=== PATIENT | female | born 1995 | race Hispanic/Latino ===

== ENCOUNTER 2025-01-17 11:48 | Inpatient (IN) | payer OTHER ==
[2025-01-16] MEDS: Magnesium Sulfate 20 gm/500 ml 20 GM/500 ML BAG IVPB SCH (22:30)
[2025-01-17 18:31] VITALS: BMI 47.2
[2025-01-17] MEDS ORDERED: Ibuprofen 800 MG TAB PO PRN (20:24)
[2025-01-17] MEDS ORDERED: Lidocaine 1% (PF) 30 ML VIAL SC PRN (20:24)
[2025-01-17] MEDS ORDERED: Methylergonovine 0.2 MG/ML VIAL IM PRN (20:24)
[2025-01-17] MEDS ORDERED: Carboprost 250 MCG/ML AMP IM PRN (20:24)
[2025-01-17] MEDS ORDERED: Ondansetron PF 4 MG/2 ML Vial IVP PRN (20:24)
[2025-01-17] MEDS ORDERED: hydrALAZINE 20 MG/ML VIAL SLOW IVP PRN (20:24)
[2025-01-17] MEDS ORDERED: Tranexamic Acid 1,000 MG/10 ML VIAL IVP PRN (20:24)
[2025-01-17] MEDS ORDERED: Acetaminophen 500 MG TAB PO PRN (20:24)
[2025-01-17] MEDS ORDERED: Diphenoxylate HCl/Atropine Tablet PO PRN ×2 (20:24)
[2025-01-17] MEDS ORDERED: Penicillin G Potassium 5 MILL.UNITS in Sodium Chloride 0.9% 100 ML IVPB SCH (20:30)
[2025-01-17] MEDS ORDERED: Oxytocin 30 units/NS 500 ML 500 ML IV SCH ×2 (20:30)
[2025-01-17 20:45] LABS: Hematocrit 38.5 % (34.9-44.5); Hemoglobin 12.3 g/dL (12.0-15.5); Mean Corpuscular Hemoglobin 27.1 pg (27.0-33.0); Mean Corpuscular Volume 84.8 fL (81.6-98.3); Platelet Count 252 10x3/uL (150-450); Red Blood Cell (RBC) Count 4.54 10x6/uL (3.90-5.03); White Blood Cell (WBC) Count 12.27 10x3/uL (3.5-10.5)
[2025-01-17 21:17] LABS: Syphilis Antibody Index 0.08 S/CO (<1.00 Non-Reactive)
[2025-01-17 21:19] LABS: Hep B Surf Ag - L&D Non-Reactive S/CO (NonReactive)
[2025-01-17] MEDS ORDERED: Calcium Gluc 4.6 MEQ/10 ML (100 MG/ML) SLOW IVP PRN (21:47)
[2025-01-17 21:51] LABS: ALT (SGPT) 22 U/L (Less than 34); AST (SGOT) 16 U/L (11-34); Albumin 3.4 g/dL (3.1-4.5); Alkaline Phosphatase 169 U/L (40-110); Anion Gap 14 mmol/L (10-20); BUN (Urea Nitrogen) 10 mg/dL (7.0-18.7); Bilirubin, Total 0.2 mg/dL (0.3-1.2); Calc. Creatinine Clearance 264 mL/min (70-130); Calcium 9.1 mg/dL (7.8-10.44); Carbon Dioxide 21 mmol/L (22-29); Chloride 106 mmol/L (98-107); Globulin 3.1 g/dL (2.4-3.5); Glucose 131 mg/dL (70-105); Potassium 4.2 mmol/L (3.5-5.1); Sodium 137 mmol/L (136-145)
[2025-01-17 21:52] LABS: Protein, Urine Random Quant 34.0 mg/dL (1-14)
[2025-01-18] MEDS: Penicillin G 2.5 MILL.units 2.5 MILL.UNITS in Premix 1 BAG IVPB SCH (00:30)
[2025-01-18] MEDS ORDERED: NIFEdipine 10 MG CAP PO PRN ×2 (00:40)
[2025-01-18] MEDS ORDERED: hydrALAZINE 20 MG/ML VIAL SLOW IVP PRN ×3 (00:40)
[2025-01-18 08:17] LABS: Hematocrit 39.3 % (34.9-44.5); Hemoglobin 12.8 g/dL (12.0-15.5); Mean Corpuscular Hemoglobin 27.1 pg (27.0-33.0); Mean Corpuscular Volume 83.3 fL (81.6-98.3); Platelet Count 266 10x3/uL (150-450); Red Blood Cell (RBC) Count 4.72 10x6/uL (3.90-5.03); White Blood Cell (WBC) Count 14.64 10x3/uL (3.5-10.5)
[2025-01-18 08:36] LABS: ALT (SGPT) 22 U/L (Less than 34); AST (SGOT) 19 U/L (11-34); Albumin 3.4 g/dL (3.1-4.5); Alkaline Phosphatase 162 U/L (40-110); Anion Gap 14 mmol/L (10-20); BUN (Urea Nitrogen) 7 mg/dL (7.0-18.7); Bilirubin, Total 0.3 mg/dL (0.3-1.2); Calc. Creatinine Clearance 287 mL/min (70-130); Calcium 8.2 mg/dL (7.8-10.44); Carbon Dioxide 20 mmol/L (22-29); Chloride 106 mmol/L (98-107); Globulin 3.5 g/dL (2.4-3.5); Glucose 99 mg/dL (70-105); Magnesium 4.3 mg/dL (1.6-2.6); Potassium 3.8 mmol/L (3.5-5.1); Sodium 136 mmol/L (136-145)
[2025-01-18] MEDS: hydrALAZINE 20 MG/ML VIAL SLOW IVP PRN (08:49)
[2025-01-18] MEDS: Dinoprostone 10 MG Suppository VAG SCH (13:18)
[2025-01-19] MEDS: Oxytocin 30 units/NS 500 ML 500 ML IV SCH (00:36)
[2025-01-19 06:29] LABS: Hematocrit 39.4 % (34.9-44.5); Hemoglobin 12.8 g/dL (12.0-15.5); Mean Corpuscular Hemoglobin 26.7 pg (27.0-33.0); Mean Corpuscular Volume 82.3 fL (81.6-98.3); Platelet Count 260 10x3/uL (150-450); Red Blood Cell (RBC) Count 4.79 10x6/uL (3.90-5.03); White Blood Cell (WBC) Count 13.78 10x3/uL (3.5-10.5)
[2025-01-19 06:51] LABS: ALT (SGPT) 23 U/L (Less than 34); AST (SGOT) 21 U/L (11-34); Albumin 3.4 g/dL (3.1-4.5); Alkaline Phosphatase 176 U/L (40-110); Anion Gap 17 mmol/L (10-20); BUN (Urea Nitrogen) 5 mg/dL (7.0-18.7); Bilirubin, Total 0.6 mg/dL (0.3-1.2); Calc. Creatinine Clearance 277 mL/min (70-130); Calcium 8.1 mg/dL (7.8-10.44); Carbon Dioxide 16 mmol/L (22-29); Chloride 106 mmol/L (98-107); Globulin 3.7 g/dL (2.4-3.5); Glucose 108 mg/dL (70-105); Magnesium 5.3 mg/dL (1.6-2.6); Potassium 3.9 mmol/L (3.5-5.1); Sodium 135 mmol/L (136-145)
[2025-01-19] MEDS: hydrALAZINE 20 MG/ML VIAL SLOW IVP PRN (08:41)
[2025-01-19] MEDS: fentaNYL/Ropivacaine Epidural 100 ML ONE (21:37)
[2025-01-19] MEDS ORDERED: diphenhydrAMINE 50 MG/ML VIAL IVP PRN (21:48)
[2025-01-19] MEDS ORDERED: Acetaminophen 325 MG TAB PO PRN (21:48)
[2025-01-19] MEDS ORDERED: Communication Order-Pharmacy FS SCH (22:00)
[2025-01-20] MEDS: Penicillin G Potassium 5 MILL.UNITS VIAL ONE (00:42)
[2025-01-20] MEDS: fentaNYL 2 mcg/Ropivacaine 0.2% Epidural 100 ML CADD EPIDURAL SCH (05:11)
[2025-01-20 06:10] LABS: Magnesium 5.4 mg/dL (1.6-2.6)
[2025-01-20 07:35] LABS: #Basophils 0.03 10x3/uL (0.0-0.2); #Eosinophils Less than 0.03 10x3/uL (0.0-0.5); #Monocytes 1.14 10x3/uL (0.0-1.1); #Neutrophils 18.87 10x3/uL (1.5-8.4); %Basophils 0.1 % (0.0-2.0); %Eosinophils 0.0 % (0.0-6.0); %Lymphocytes 3.8 % (18.0-47.0); %Monocytes 5.4 % (0.0-10.0); %Neutrophils 90.1 % (40.0-75.0); Hematocrit 37.7 % (34.9-44.5); Hemoglobin 12.3 g/dL (12.0-15.5); Mean Corpuscular Hemoglobin 27.2 pg (27.0-33.0); Mean Corpuscular Volume 83.4 fL (81.6-98.3); Platelet Count 251 10x3/uL (150-450); Red Blood Cell (RBC) Count 4.52 10x6/uL (3.90-5.03); White Blood Cell (WBC) Count 20.97 10x3/uL (3.5-10.5)
[2025-01-20 07:54] LABS: ALT (SGPT) 24 U/L (Less than 34); AST (SGOT) 24 U/L (11-34); Albumin 3.0 g/dL (3.1-4.5); Alkaline Phosphatase 167 U/L (40-110); Anion Gap 15 mmol/L (10-20); BUN (Urea Nitrogen) 6 mg/dL (7.0-18.7); Bilirubin, Total 0.8 mg/dL (0.3-1.2); Calc. Creatinine Clearance 240 mL/min (70-130); Calcium 8.0 mg/dL (7.8-10.44); Carbon Dioxide 18 mmol/L (22-29); Chloride 105 mmol/L (98-107); Globulin 3.5 g/dL (2.4-3.5); Glucose 118 mg/dL (70-105); Potassium 4.0 mmol/L (3.5-5.1); Sodium 134 mmol/L (136-145)
[2025-01-20] MEDS ORDERED: Bicitra 30 ML UDCUP PO PRN (10:27)
[2025-01-20] MEDS ORDERED: HYDROmorphone 0.5 MG/0.5 ML SYRINGE SLOW IVP PRN (10:28)
[2025-01-20] MEDS ORDERED: diphenhydrAMINE 50 MG/ML VIAL IVP PRN (10:28)
[2025-01-20] MEDS ORDERED: Meperidine HCl/PF 25 MG (1 mL) VIAL SLOW IVP PRN (10:28)
[2025-01-20] MEDS ORDERED: Ondansetron PF 4 MG/2 ML Vial IVP PRN ×3 (10:28→11:56)
[2025-01-20] MEDS ORDERED: Communication Order-Pharmacy FS SCH (10:30)
[2025-01-20] MEDS ORDERED: Ketorolac Tromethamine 30 MG (1 mL) VIAL IVP SCH (10:30)
[2025-01-20] MEDS ORDERED: Azithromycin 500 MG in Sodium Chloride 0.9% 250 ML 250 ML IVPB SCH (10:30)
[2025-01-20] MEDS: Famotidine/PF 20 mg/2ml Vial SLOW IVP PRN (10:36)
[2025-01-20] MEDS: Ondansetron PF 4 MG/2 ML Vial IVP PRN (10:37)
[2025-01-20 11:41] LABS: Analyzer IN Cardio CS NICU; Critical Notified By: Udy, RRT; Critical Notified Whom: Emma, L&D RN; pH (Cord, venous) 7.330 (7.250-7.350)
[2025-01-20] MEDS ORDERED: Methylergonovine 0.2 MG TAB PO PRN (11:56)
[2025-01-20] MEDS ORDERED: diphenhydrAMINE 25 MG CAP PO PRN (11:56)
[2025-01-20] MEDS ORDERED: Methylergonovine 0.2 MG/ML VIAL IM PRN (11:56)
[2025-01-20] MEDS ORDERED: hydrALAZINE 20 MG/ML VIAL SLOW IVP PRN ×3 (11:56→15:08)
[2025-01-20] MEDS: Ketorolac Tromethamine 30 MG (1 mL) VIAL IVP PRN (14:22)
[2025-01-20] MEDS ORDERED: Calcium Gluc 4.6 MEQ/10 ML (100 MG/ML) SLOW IVP PRN (15:08)
[2025-01-20 15:14] LABS: Magnesium 4.7 mg/dL (1.6-2.6)
[2025-01-20] MEDS: Magnesium Sulfate 20 gm/500 ml 20 GM/500 ML BAG IVPB SCH (16:00)
[2025-01-20] MEDS: Carboprost 250 MCG/ML AMP ONE (16:53)
[2025-01-20] MEDS: Tranexamic Acid 1,000 MG/10 ML VIAL ONE (16:54)
[2025-01-20] MEDS: Azithromycin 500 MG VIAL ONE (17:07)
[2025-01-20] MEDS: Metoclopramide HCl 10 MG (2 mL) VIAL ONE (17:07)
[2025-01-20] MEDS: Ondansetron PF 4 MG/2 ML Vial ONE (17:07)
[2025-01-20] MEDS: Oxytocin 10 UNITS/ML VIAL ONE ×2 (17:07→17:08)
[2025-01-20] MEDS: Famotidine/PF 20 mg/2ml Vial ONE (17:07)
[2025-01-20] MEDS: CEFAZOLIN 2 GM VIAL ONE (17:07)
[2025-01-20] MEDS: Oxytocin 30 units/NS 500 ML 500 ML IV SCH (17:36)
[2025-01-20] MEDS: Diphenoxylate HCl/Atropine Tablet PO SCH (17:36)
[2025-01-20] MEDS ORDERED: Clindamycin/D5W 900 MG in Premix 1 BAG IVPB SCH ×2 (17:45→22:00)
[2025-01-20 17:55] LABS: D-Dimer Test 8.84 mcg/mL (0.19-0.50); Fibrinogen 295.0 mg/dL (220-504); INR-International Normal Ratio 1.1; PTT 39.9 sec (22.0-33.0); Prothrombin Time 11.6 sec (9.5-12.1)
[2025-01-20 17:57] LABS: Platelet Count 141.0 10x3/uL (150-450)
[2025-01-20 17:58] LABS: #Basophils Less than 0.03 10x3/uL (0.0-0.2); #Eosinophils Less than 0.03 10x3/uL (0.0-0.5); #Monocytes 0.83 10x3/uL (0.0-1.1); #Neutrophils 11.48 10x3/uL (1.5-8.4); %Basophils 0.1 % (0.0-2.0); %Eosinophils 0.0 % (0.0-6.0); %Lymphocytes 5.5 % (18.0-47.0); %Monocytes 6.3 % (0.0-10.0); %Neutrophils 87.7 % (40.0-75.0); Hematocrit 19.7 % (34.9-44.5); Hemoglobin 6.5 g/dL (12.0-15.5); Mean Corpuscular Hemoglobin 28.4 pg (27.0-33.0); Mean Corpuscular Volume 86.0 fL (81.6-98.3); Platelet Count 139 10x3/uL (150-450); Red Blood Cell (RBC) Count 2.29 10x6/uL (3.90-5.03); White Blood Cell (WBC) Count 13.09 10x3/uL (3.5-10.5)
[2025-01-20 18:06] LABS: ALT (SGPT) 14 U/L (Less than 34); AST (SGOT) 16 U/L (11-34); Albumin 1.6 g/dL (3.1-4.5); Alkaline Phosphatase 80 U/L (40-110); Anion Gap 7 mmol/L (10-20); BUN (Urea Nitrogen) 6 mg/dL (7.0-18.7); Bilirubin, Total 0.7 mg/dL (0.3-1.2); Calc. Creatinine Clearance 297 mL/min (70-130); Calcium 5.0 mg/dL (7.8-10.44); Carbon Dioxide 15 mmol/L (22-29); Chloride 113 mmol/L (98-107); Globulin 1.8 g/dL (2.4-3.5); Glucose 94 mg/dL (70-105); Potassium 3.0 mmol/L (3.5-5.1); Sodium 132 mmol/L (136-145)
[2025-01-20] MEDS: Furosemide 40 MG (4 mL) VIAL SLOW IVP SCH (18:06)
[2025-01-20 18:07] LABS: Magnesium 6.0 mg/dL (1.6-2.6)
[2025-01-20] MEDS: Clindamycin/D5W 900 MG in Premix 1 BAG IVPB SCH (20:25)
[2025-01-20 23:26] LABS: Magnesium 4.6 mg/dL (1.6-2.6)
[2025-01-21 02:38] LABS: #Basophils 0.03 10x3/uL (0.0-0.2); #Eosinophils 0.07 10x3/uL (0.0-0.5); #Monocytes 1.22 10x3/uL (0.0-1.1); #Neutrophils 14.75 10x3/uL (1.5-8.4); %Basophils 0.2 % (0.0-2.0); %Eosinophils 0.4 % (0.0-6.0); %Lymphocytes 8.6 % (18.0-47.0); %Monocytes 6.9 % (0.0-10.0); %Neutrophils 83.4 % (40.0-75.0); Hematocrit 29.5 % (34.9-44.5); Hemoglobin 9.7 g/dL (12.0-15.5); Mean Corpuscular Hemoglobin 27.0 pg (27.0-33.0); Mean Corpuscular Volume 82.2 fL (81.6-98.3); Platelet Count 174 10x3/uL (150-450); Red Blood Cell (RBC) Count 3.59 10x6/uL (3.90-5.03); White Blood Cell (WBC) Count 17.67 10x3/uL (3.5-10.5)
[2025-01-21 02:41] LABS: Magnesium 4.2 mg/dL (1.6-2.6)
[2025-01-21] MEDS ORDERED: Magnesium Sulfate 20 gm/500 ml 20 GM/500 ML BAG IVPB SCH (03:36)
[2025-01-21 06:52] LABS: Magnesium 4.1 mg/dL (1.6-2.6)
[2025-01-21] MEDS: HYDROcodone/Acetaminophen 5/325 mg Tablet PO PRN (07:21)
[2025-01-21 10:41] LABS: ALT (SGPT) 18 U/L (Less than 34); AST (SGOT) 21 U/L (11-34); Albumin 2.5 g/dL (3.1-4.5); Alkaline Phosphatase 120 U/L (40-110); Anion Gap 12 mmol/L (10-20); BUN (Urea Nitrogen) 7 mg/dL (7.0-18.7); Bilirubin, Total 0.9 mg/dL (0.3-1.2); Calc. Creatinine Clearance 237 mL/min (70-130); Calcium 7.5 mg/dL (7.8-10.44); Carbon Dioxide 22 mmol/L (22-29); Chloride 105 mmol/L (98-107); Globulin 2.8 g/dL (2.4-3.5); Glucose 78 mg/dL (70-105); Potassium 4.1 mmol/L (3.5-5.1); Sodium 135 mmol/L (136-145)
[2025-01-21] MEDS ORDERED: Ibuprofen 600 MG TAB PO SCH (10:45)
[2025-01-21] MEDS: Ibuprofen 200 MG TAB PO SCH (10:58)
[2025-01-21 11:03] LABS: Magnesium 3.7 mg/dL (1.6-2.6)
[2025-01-21] MEDS: Tranexamic Acid 1,000 MG/10 ML VIAL IVP SCH (13:08)
[2025-01-21] MEDS: Tranexamic Acid 1,000 MG/10 ML VIAL ONE (13:08)
[2025-01-21] MEDS: Carboprost 250 MCG/ML AMP ONE (13:08)
[2025-01-21] MEDS: Boostrix 0.5 ML (Tdap) VIAL (>/=7 yrs of age) IM ONE (13:09)
[2025-01-21] MEDS: hydrALAZINE 20 MG/ML VIAL ONE (13:11)
[2025-01-21] MEDS ORDERED: Ibuprofen 800 MG TAB PO SCH (14:00)
[2025-01-21] MEDS: Ibuprofen 800 MG TAB PO SCH (18:10)
[2025-01-22 04:47] LABS: #Basophils Less than 0.03 10x3/uL (0.0-0.2); #Eosinophils 0.12 10x3/uL (0.0-0.5); #Monocytes 0.98 10x3/uL (0.0-1.1); #Neutrophils 9.60 10x3/uL (1.5-8.4); %Basophils 0.2 % (0.0-2.0); %Eosinophils 1.0 % (0.0-6.0); %Lymphocytes 14.0 % (18.0-47.0); %Monocytes 7.8 % (0.0-10.0); %Neutrophils 76.4 % (40.0-75.0); Hematocrit 26.1 % (34.9-44.5); Hemoglobin 8.5 g/dL (12.0-15.5); Mean Corpuscular Hemoglobin 27.8 pg (27.0-33.0); Mean Corpuscular Volume 85.3 fL (81.6-98.3); Platelet Count 178 10x3/uL (150-450); Red Blood Cell (RBC) Count 3.06 10x6/uL (3.90-5.03); White Blood Cell (WBC) Count 12.56 10x3/uL (3.5-10.5)
[2025-01-22] MEDS: HYDROcodone/Acetaminophen 5/325 mg Tablet PO SCH (10:41)
[2025-01-22] MEDS: HYDROcodone/Acetaminophen 10/325 mg Tablet PO SCH (15:49)
[2025-01-22] MEDS: Ferrous Sulfate 325 MG TAB PO SCH (18:05)
[2025-01-22 19:44] VITALS: BMI 47.2
[2025-01-23 03:17] LABS: #Basophils 0.03 10x3/uL (0.0-0.2); #Eosinophils 0.26 10x3/uL (0.0-0.5); #Monocytes 0.81 10x3/uL (0.0-1.1); #Neutrophils 9.29 10x3/uL (1.5-8.4); %Basophils 0.2 % (0.0-2.0); %Eosinophils 2.1 % (0.0-6.0); %Lymphocytes 15.7 % (18.0-47.0); %Monocytes 6.5 % (0.0-10.0); %Neutrophils 74.7 % (40.0-75.0); Hematocrit 28.3 % (34.9-44.5); Hemoglobin 9.1 g/dL (12.0-15.5); Mean Corpuscular Hemoglobin 27.6 pg (27.0-33.0); Mean Corpuscular Volume 85.8 fL (81.6-98.3); Platelet Count 227 10x3/uL (150-450); Red Blood Cell (RBC) Count 3.30 10x6/uL (3.90-5.03); White Blood Cell (WBC) Count 12.45 10x3/uL (3.5-10.5)
[2025-01-23] MEDS: Enoxaparin 40 MG (0.4 mL) SYRINGE SC SCH (11:14)
[2025-01-23] MEDS: Furosemide 20 MG TAB PO SCH (11:14)
[2025-01-23 12:00] VITALS: BP 138/69; TEMP 97.9
[2025-01-23] MEDS: Acetaminophen 325 MG TAB PO PRN (13:39)
[2025-01-23] MEDS ORDERED: Enoxaparin 40 MG (0.4 mL) SYRINGE SC SCH (21:00)
== END 2025-01-23 15:20 | disposition home or self-care (01) | DRG 788 ==
LOC: CSHLD 18:00 → CSHPP 01-21 13:05
PROVIDERS: ADMIT Family Medicine; ATTEND Family Medicine
PROC: 3E0DXGC Introduction of Other Therapeutic Substance into Mouth and Pharynx, External Approach (ICD-10-PCS; 2025-01-18)
PROC: 0U7C7DJ Dilation of Cervix with Intraluminal Device, Temporary, Via Natural or Artificial Opening (ICD-10-PCS; 2025-01-18)
PROC: 4A1HXCZ Monitoring of Products of Conception, Cardiac Rate, External Approach (ICD-10-PCS; 2025-01-18)
PROC: 10D00Z1 Extraction of Products of Conception, Low, Open Approach (ICD-10-PCS; principal; 2025-01-20)
PROC: 30233N1 Transfusion of Nonautologous Red Blood Cells into Peripheral Vein, Percutaneous Approach (ICD-10-PCS; 2025-01-20)
PROC: 4A033R1 Measurement of Arterial Saturation, Peripheral, Percutaneous Approach (ICD-10-PCS; 2025-01-20)
PROC: 3E03329 Introduction of Other Anti-infective into Peripheral Vein, Percutaneous Approach (ICD-10-PCS; 2025-01-20)
DX: O11.4 Pre-existing hypertension with pre-eclampsia, complicating childbirth (principal); O99.214 Obesity complicating childbirth; O99.892 Other specified diseases and conditions complicating childbirth; R73.03 Prediabetes; O99.824 Streptococcus B carrier state complicating childbirth; O61.8 Other failed induction of labor; O72.1 Other immediate postpartum hemorrhage; O36.8130 Decreased fetal movements, third trimester, not applicable or unspecified; Z14.8 Genetic carrier of other disease; Z87.891 Personal history of nicotine dependence
CPT/HCPCS: 36415; 36430; 51702; 59200; 80053; 82570; 82805; 83735; 84156; 85025; 85027; 85049; 85300; 85362; 85384; 85610; 85730; 86780; 86850; 86900; 86901; 87340; J0290; J0360; J1308; J1650; J1885; J2274; J2405; J2540; J2590; J2765; J3010; J3475; J3490; J7120; P9016